=== PATIENT | male | born 1975 | race Caucasian/White ===

== ENCOUNTER 2017-07-07 07:54 | Emergency (ER) | payer BC, OTHER ==
[~2017-07-07] VITALS: Ht 188 cm; Wt 123.0 kg
[2017-07-07 08:06] VITALS: BP 148/78; PULSE 64; RESP 18; TEMP 98.2; O2SAT 96
[2017-07-07] MEDS ORDERED: VENTAER INH (11:28)
[2017-07-07] MEDS ORDERED: AZIT250T3 PO (11:28)
[2017-07-07] MEDS ORDERED: PRED20 PO (11:28)
--- NOTE | 2017-07-07 11:33 | PD ---
HPI Chief Complaint: ENT Complaint Time Seen by Provider: 11:17 Travel History International Travel<30 days: No Contact w/Intl Traveler<30days: No Traveled to known affect area: No History of Present Illness HPI 42-year-old male presents to the emergency room for evaluation of nonproductive cough, congestion, laryngitis, and diarrhea since yesterday. Sore throat started 3 days ago. He has been taking Mucinex without significant relief in symptoms. Sore throat is severe, 8/10. States his eyes are occasionally getting blurry but denies any drainage. Denies foreign body sensation or pain. Patient is a smoker. Denies chronic medical conditions or daily medications. Denies fever, chills, nausea, and vomiting. PFSH Past Medical History Medical History: Denies Significant Hx Diminished Hearing: No Immunizations Current: No Tetanus Vaccination: Unknown Influenza Vaccination: No Past Surgical History Other Surgery: Yes (lt index) Social History Alcohol Use: Yes (weekly) Tobacco Use: Yes (1/2) Substance Use: No Allergies-Medications (Allergen,Severity, Reaction): Coded Allergies: No Known Allergies (Verified , 07/07/17) Reported Meds & Prescriptions Reported Meds & Active Scripts Active No Active Prescriptions or Reported Medications Review of Systems Except as stated in HPI: all other systems reviewed are Neg Physical Exam Narrative GENERAL: Well-nourished, well-developed male in no acute distress. Afebrile. Ambulatory. SKIN: Focused skin assessment warm/dry. HEAD: Normocephalic. EYES: No scleral icterus. No injection or drainage. ENT: Mucosa pink and moist. No erythema or exudates. No uvular edema. No uvular , palatal, or tonsillar deviation. Airway patent. Nasal turbinates appear normal without nasal blood, purulent drainage or septal hematoma. NECK: Supple, trachea midline. No JVD or lymphadenopathy. CARDIOVASCULAR: Regular rate and rhythm without murmurs, gallops, or rubs. RESPIRATORY: Breath sounds equal bilaterally. No accessory muscle use. Scattered bilateral wheezes, rales, and rhonchi that clear with coughing. Data Data Last Documented VS Vital Signs Date Time Temp Pulse Resp B/P (MAP) Pulse Ox O2 Delivery O2 Flow Rate FiO2 07/07/17 11:14 (101) 07/07/17 08:06 98.2 64 18 96 Room Air MDM Medical Decision Making Medical Screen Exam Complete: Yes Emergency Medical Condition: Yes Medical Record Reviewed: Yes Differential Diagnosis Pneumonia, bronchitis, upper respiratory infection Narrative Course 42-year-old male presents to the emergency room for evaluation of nonproductive cough and multiple cold for the past day. Sore throat started 3 days ago and is severe. Patient is resting comfortably. Vital signs stable. No increased work of breathing. Bilateral lung sounds have Rales, rhonchi, and wheezing that cleared with coughing. Patient will be treated empirically with azithromycin, prednisone, and albuterol inhaler. Likely viral upper respiratory infection with associated laryngitis, bronchitis, and diarrhea. Diagnosis Primary Impression: Bronchitis Referrals: Primary Care Physician Additional Instructions: Rest and drink plenty of fluids. Take medications as prescribed. Follow-up with a primary care physician. Return to the emergency room for worsening symptoms. Scripts Prednisone (Prednisone) 20 Mg Tab 40 MG PO DAILY, #10 TAB 0 Refills Take 40 mg (2 tablets) daily for 5 days Prov: Sea Heath MD 07/07/17 Azithromycin (Azithromycin) 250 Mg Tab 250 MG PO DIRECTED for Infection, #6 TAB 0 Refills Take 2 tabs (500 mg) on day 1 then 1 tab daily x 4 days. Prov: Sea Heath MD 07/07/17 Albuterol 18 GM Inh (Ventolin Hfa 18 GM Inh) 90 Mcg/Act Aer 2 PUFF INH Q6H Y for SHORTNESS OF BREATH, #1 INHALER 0 Refills Prov: Sea Heath MD 07/07/17 Disposition: 01 DISCHARGE HOME Condition: Stable Sherlyn Almaraz Jul 07, 2017 11:33
== END 2017-07-07 11:48 | disposition home or self-care (01) ==
LOC: PHED 07:54
DX: J40 Bronchitis, not specified as acute or chronic (principal); F17.210 Nicotine dependence, cigarettes, uncomplicated
CPT/HCPCS: 99284